=== PATIENT | female | born 1995 | race Caucasian/White ===

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

== ENCOUNTER → 2019-02-26 | Outpatient (REF) | payer OTHER | LOC: M SFHCWAGY 08:12 | PROVIDERS: ATTEND Nurse Practitioner Women's Health | DX: Z12.4 Encounter for screening for malignant neoplasm of cervix (principal) ==

== ENCOUNTER 2019-12-16 15:05 | Outpatient (RCR) | payer OTHER | END 2019-12-19 | LOC: M PT 15:05 | PROVIDERS: ATTEND Orthopaedic Surgery | DX: Z47.89 Encounter for other orthopedic aftercare (principal); M25.561 Pain in right knee | CPT/HCPCS: 97110; 97140; 97161; G0283 ==

== ENCOUNTER 2020-01-17 16:00 | Outpatient (RCR) | payer OTHER | END 2020-01-18 | LOC: M PT 16:00 | PROVIDERS: ATTEND Orthopaedic Surgery | DX: M25.561 Pain in right knee (principal) | CPT/HCPCS: 97110; 97140; G0283 ==

== ENCOUNTER 2020-02-16 16:00 | Outpatient (RCR) | payer OTHER | END 2020-02-18 | LOC: M PT 16:00 | PROVIDERS: ATTEND Orthopaedic Surgery | DX: M25.561 Pain in right knee (principal) ==

== ENCOUNTER 2020-03-08 16:00 | Outpatient (RCR) | payer OTHER | END 2020-03-20 | LOC: M PT 16:00 | PROVIDERS: ATTEND Orthopaedic Surgery | DX: M25.561 Pain in right knee (principal) ==

== ENCOUNTER → 2021-03-06 | Outpatient (REF) | payer OTHER ==
[2021-03-06 18:02] LABS: APPEARANCE, URINE CLOUDY (CLEAR); BACTERIA, URINE AUTO 1+ (NEGATIVE); BILIRUBIN, URINE AUTO NEGATIVE (NEGATIVE); BLOOD, URINE BLOOD 3+ (NEGATIVE); COLOR, URINE YELLOW (YELLOW); GLUCOSE, URINE (UA) AUTO NEGATIVE (NEGATIVE); KETONE, URINE AUTO NEGATIVE (NEGATIVE); LEUKOCYTE ESTERASE, URINE AUTO 3+ (NEGATIVE); NITRITE, URINE AUTO NEGATIVE (NEGATIVE); PROTEIN, URINE AUTO 2+ mg/dL (NEGATIVE); RBC, URINE AUTO TNTC /HPF (0-3); SPECIFIC GRAVITY URINE AUTO 1.009 (1.002-1.035); SQUAMOUS EPITHELIAL CELL UR AU 1 /HPF (0-6); UROBILINOGEN, URINE AUTO 0.2 mg/dL (0.0-2.0); WBC, URINE AUTO TNTC /HPF (0-3)
== END ==
LOC: M LAB REF 17:27
PROVIDERS: ATTEND Physician Assistant Medical
DX: N39.0 Urinary tract infection, site not specified (principal); R30.0 Dysuria

== ENCOUNTER 2022-11-05 21:16 | Emergency (ER) | payer OTHER ==
[~2022-11-05] VITALS: Ht 154.9 cm; Wt 59.1 kg
[2022-11-06 01:45] VITALS: BP 128/76
== END 2022-11-06 01:46 | disposition home or self-care (01) ==
LOC: M ED 21:16
DX: S00.81XA Abrasion of other part of head, initial encounter (principal); W22.09XA Striking against other stationary object, initial encounter; Y92.89 Other specified places as the place of occurrence of the external cause; Y93.89 Activity, other specified; Y99.0 Civilian activity done for income or pay

== ENCOUNTER → 2022-12-11 | Outpatient (REF) | payer OTHER | LOC: M SFHCWAGY 13:28 | PROVIDERS: ATTEND Nurse Practitioner Family | DX: Z12.4 Encounter for screening for malignant neoplasm of cervix (principal); Z01.419 Encounter for gynecological examination (general) (routine) without abnormal findings; Z77.9 Other contact with and (suspected) exposures hazardous to health ==

== ENCOUNTER → 2023-05-07 | Outpatient (REF) | payer OTHER | LOC: M SFHCWAGY 09:42 | PROVIDERS: ATTEND Nurse Practitioner Family | DX: N94.10 Unspecified dyspareunia (principal) ==

== ENCOUNTER → 2023-05-16 | Outpatient (CLI) | payer OTHER | LOC: M WHC 08:12 | PROVIDERS: ATTEND Nurse Practitioner Family | DX: N94.10 Unspecified dyspareunia (principal); Z97.5 Presence of (intrauterine) contraceptive device ==

== ENCOUNTER → 2023-06-08 | Outpatient (REF) | payer OTHER | LOC: M LAB REF 20:36 | PROVIDERS: ATTEND Student in an Organized Health Care Education/Training Program | DX: R30.0 Dysuria (principal) ==

== ENCOUNTER → 2024-02-07 | Outpatient (REF) | payer OTHER | LOC: M LAB REF 08:15 | PROVIDERS: ATTEND Physician Assistant | DX: N39.0 Urinary tract infection, site not specified (principal) ==

== ENCOUNTER → 2024-11-17 | Outpatient (RCR) | payer OTHER | LOC: M PT 11-04 07:33 | PROVIDERS: ATTEND Orthopaedic Surgery | DX: M24.511 Contracture, right shoulder (principal) ==

== ENCOUNTER → 2025-06-06 | Outpatient (CLI) | payer OTHER | LOC: M WHC 12:03 | PROVIDERS: ATTEND Advanced Practice Midwife | DX: Z34.81 Encounter for supervision of other normal pregnancy, first trimester (principal) ==

== ENCOUNTER → 2025-06-06 | Outpatient (CLI) | payer OTHER ==
[2025-06-06 16:38] LABS: PLATELET COUNT, AUTOMATED 184 10^3/uL (150-450)
[2025-06-06 17:07] LABS: HIV 1&2 SCREEN NEGATIVE (NEGATIVE)
[2025-06-06 17:14] LABS: HEPATITIS C VIRUS ABY INDEX < 0.02 INDEX (<0.8)
== END ==
LOC: M PLALAB 13:27
PROVIDERS: ATTEND Advanced Practice Midwife
DX: Z34.81 Encounter for supervision of other normal pregnancy, first trimester (principal)

== ENCOUNTER → 2025-06-13 | Outpatient (REF) | payer OTHER | LOC: M LAB REF 12:03 | PROVIDERS: ATTEND Student in an Organized Health Care Education/Training Program | DX: R30.0 Dysuria (principal) ==

== ENCOUNTER → 2025-06-29 | Outpatient (CLI) | payer OTHER | LOC: M PLALAB 08:58 | PROVIDERS: ATTEND Advanced Practice Midwife | DX: Z34.01 Encounter for supervision of normal first pregnancy, first trimester (principal) ==

== ENCOUNTER → 2025-07-07 | Outpatient (CLI) | payer OTHER | LOC: M PLALAB 13:21 | PROVIDERS: ATTEND Advanced Practice Midwife | DX: Z34.80 Encounter for supervision of other normal pregnancy, unspecified trimester (principal) ==